=== PATIENT | male | born 1990 | race American Indian/Alaskan Native ===

== ENCOUNTER 2016-12-07 09:02 | Emergency (ER) | payer SELFPAY ==
[2016-12-07 09:28] LABS: Urine Drugs of Abuse Note Disclamer
[2016-12-07 09:30] LABS: Eosinophils % (Auto) 1.3 % (0.0-4.3); Hematocrit 46.5 % (35.5-45.6); Hemoglobin 15.3 gm/dl (11.8-15.2); Mean Corpuscular HGB Conc 33 % (32-34); Mean Corpuscular Hemoglobin 30 pg (28-32); Mean Corpuscular Volume 90 fl (84-94); Platelet Count 242 K/mm3 (140-440); Red Blood Count 5.19 M/mm3 (3.65-5.03); Red Cell Distribution Width 13.8 % (13.2-15.2); White Blood Count 4.8 K/mm3 (4.5-11.0)
[2016-12-07 09:35] LABS: Bilirubin,Urine NEG (Negative); Blood,Urine SM (Negative); Ketones,Urine NEG (Negative); Leukocyte Esterase,Urine SM (Negative); Nitrite,Urine NEG (Negative); Protein,Urine <15 mg/dL mg/dL (Negative); Urobilinogen,Urine < 2.0 mg/dL (<2.0)
[2016-12-07 09:44] LABS: Anion Gap 19 mmol/L; BUN/Creatinine Ratio 7.27; Blood Urea Nitrogen 8 mg/dL (9-20); Carbon Dioxide 25 mmol/L (22-30); Chloride 101.4 mmol/L (98-107); Glucose 91 mg/dL (75-100); Potassium 3.7 mmol/L (3.6-5.0); Sodium 142 mmol/L (137-145)
--- NOTE | 2016-12-07 13:18 | Emergency Department Report ---
ED Psych HPI - General Chief Complaint: Psych Stated Complaint: THREATENED SUICIDE SHOTGUN TO HEAD Time Seen by Provider: 12/07/16 09:33 Source: patient, EMS Mode of arrival: Ambulatory - History of Present Illness Initial Comments: PAtient reports that he was sitting on the porch holding a shotgun that he found. Reports that the shotgun contained no bullets. Patient reports that his mother saw him with the gun and panicked and called the police with concern for SI. Patient denies SI/HI. Patient denies holding the gun barrel to his head and says that he is not able to position a shot gun to his head. Complaint: other (Patient denies SI/HI. Reports that there was a miscommunication with his mother) -: hour(s) Quality: other (patient denies SI) Improves With: none Worsens With: none Context: other (reports he was reviewing the shotgun that he found) Associated Symptoms: denies: confusion, headache, shortness of breath, nausea, vomiting, syncope, insomnia - Related Data Home Medications Medication Instructions Recorded Confirmed Last Taken No Known Home Medications [No 12/07/16 12/07/16 Unknown Reported Home Medications] Allergies Allergy/AdvReac Type Severity Reaction Status Date / Time No Known Allergies Allergy Unverified 12/07/16 09:07 ED Review of Systems ROS: Stated complaint: THREATENED SUICIDE SHOTGUN TO HEAD Other details as noted in HPI Other: GENERAL: No weight change, fatigue, weakness, fever, chills, or night sweats SKIN: No changes in skin or hair, no itching, no rashes, no jaundice HEAD: No trauma, headache, or visual changes EYES: No blurriness, tearing, itching, acute visual loss, conjunctival discoloration, or scleral icterus EARS: No hearing loss, tinnitus, vertigo, or earache NOSE: No rhinorrhea, stuffiness, sneezing, itching, or epistaxis MOUTH: No bleeding gums, hoarseness, sore throat, or swelling CARDIAC: No new murmur, chest pain, palpitations, dyspnea on exertion, orthopnea , PND, or edema RESPIRATORY: No shortness of breath, wheeze, cough, sputum production, hemoptysis, pneumonia, asthma, bronchitis, or emphysema GI: No change in appetite, nausea, vomiting, dysphagia, change in bowel frequency, diarrhea, constipation, bleeding, hematemesis, melena, hematochezia, or abdominal pain URINARY: No frequency, urgency, polyuria, dysuria, hematuria, or incontinence MUSCULOSKELETAL: No muscle weakness, joint stiffness, decrease in range of motion, redness, swelling, tenderness NEUROLOGIC: No loss of sensation, numbness, tingling, tremors, weakness, paralysis, seizures HEMATOLOGIC: No anemia, easy bruising, bleeding, petechiae, or purpura ENDOCRINE: No hot or cold intolerance, sweating, polyuria, polydipsia or, polyphagia no thyroid problems PSYCHIATRIC: No change in mood, no anxiety, no depression, denies SI/HI ED Past Medical Hx - Past Medical History Previous Medical History?: No - Surgical History Past Surgical History?: No - Social History Smoking Status: Current Every Day Smoker Substance Use Type: Alcohol - Medications Home Medications: Home Medications Medication Instructions Recorded Confirmed Last Taken Type No Known Home Medications [No 12/07/16 12/07/16 Unknown History Reported Home Medications] ED Physical Exam - General Limitations: Other - Other Other exam information: GENERAL: Patient in no acute distress HEAD: Normocephalic, atraumatic EYES: PERRLA, EOM intact, no scleral icterus, no papilledema, no conjunctival hemorrhage, visual lockett and acuity wnl, NOSE: No tenderness, discharge, sinus tenderness MOUTH: No erythema, bleeding, exudate HEART: Regular rate and rhythm, no murmur, S1-S2 are auscultated, pulses are symmetric LUNGS: No wheezing, rales, rhonchi, bilateral breath sounds ABDOMEN: Normal bowel sounds, no tenderness, no rebound, no guarding, no masses , no CVA tenderness MUSCULOSKELETAL: Normal joint range of motion, no redness, no swelling, no tenderness NEUROLOGIC: GCS 15, Alert and Oriented x3, Cranial nerves intact, normal sensation, normal strength, normal gait, no cerebellar deficit PSYCHIATRIC: No homicidal or suicidal ideation, no anxiety, no depression, no hallucinations SKIN: Skin is warm and dry, no wounds, no rashes ED Course Vital Signs 12/07/16 12/07/16 09:22 09:27 Temperature 98.4 F Pulse Rate 67 Respiratory 18 18 Rate Blood Pressure 128/68 [Right] O2 Sat by Pulse 97 Oximetry ED Medical Decision Making - Lab Data Result diagrams: 12/07/16 09:19 12/07/16 09:19 - Medical Decision Making Mental health [employer] math teacher evaluated the patient in the ER and subsequently discussed the case. Mental health middle school math teacher recommended in person that the patient expressed no SI/HI and that he was safe for discharge from the ER. I also concurred with that plan as patient has continuously denied any SI/HI and reports that there were no bullets in the gun. However, upon discharge the ER nurse reports that placed a note recommending 1013 and inpatient stabilization. A call to determined that the original note that is documented was written before evaluating the patient. This discrepancy was shared with the charge nurse and asked to be reviewed for quality assurance project manager. reports that they will have another counselor come to the ER to evaluate the patient and document a new note in the chart with disposition recommendations. [facility] health middle school math teacher recommends discharge as well and will place an official note in the patient's chart. Critical care attestation.: If time is entered above; I have spent that time in minutes in the direct care of this critically ill patient, excluding procedure time. ED Disposition Clinical Impression: Guns in home not stored in locked cabinet Disposition: DC-01 TO HOME OR SELFCARE Is pt being admited?: No Condition: Stable Instructions: Suicide Prevention for Adults (ED) Referrals: PRIMARY CAREMD [Primary Care Provider] - 3-5 Days Time of Disposition: 13:16
--- NOTE | 2016-12-07 17:12 | Consultation ---
History of Present Illness - Reason for Consult Consult date: 12/07/16 Reason for consult: Mental Health Evaluation Requesting physician: BONIFACIO CORDON - Chief Complaint Chief complaint: 'I was just playing" - History of Present Psychiatric Illness Patient reports that he was sitting on the porch holding a shotgun that he found. Reports that the shotgun contained no bullets. Today patient is calm and cooperative during assessment. Patient stated that he was playing around with a shotgun, but had no intention of killing himself. He stated that the shotgun wasn't loaded with shells. He stated that it may have looked "bad," but his attention was not to harm himself. He denies suicidal attempts in the past and per his mother she isn't aware of her son ever trying to kill himself. She stated that she was scared and the police was called. She did state the patient has been using recreational drugs and drinking alcohol (etoh) frequently. Patient stated that he drink alcohol (etoh), used cocaine, and marijuana late last night. He stated that he want help for his substance abuse. He stated, "I have 4 kids to live for." He denies SI/HI's, AVH's, and depression symptoms. Patient denies paranoia. The shotgun was confiscated by [employer]. Medications and Allergies Allergies Allergy/AdvReac Type Severity Reaction Status Date / Time No Known Allergies Allergy Unverified 12/07/16 09:07 Home Medications Medication Instructions Recorded Confirmed Last Taken Type No Known Home Medications [No 12/07/16 12/07/16 Unknown History Reported Home Medications] Past psychiatric history - Past Medical History Past Medical History: No medical history Past Surgical History: No surgical history - past Psychiatric treatment and history psychiatric treatment history: Denies any psy hx. Denies fam psy hx. - Social History Social history: lives with family (10th grade education) Mental Status Exam - Vital signs Last Vital Signs Temp 98.4 F 12/07/16 09:22 Pulse 67 12/07/16 09:22 Resp 18 12/07/16 09:27 BP 128/68 12/07/16 09:22 Pulse Ox 97 12/07/16 09:22 - Exam Narrative exam: ROS: (-) depression MSE: Appearance: calm, cooperative Behavior: good eye contact Speech: regular rate and tone Mood: "I am okay" Affect: flat Thought Process: linear Thought Content: denies of SI/HI's and AVH's Motor Activity: ambulatory Cognition: a/O x3 Insight: fair Judgment: fair Results Result Diagrams: 12/07/16 09:19 12/07/16 09:19 Abnormal lab results 12/07/16 12/07/16 12/07/16 Range/Units 09:19 09:19 09:19 RBC 5.19 H (3.65-5.03) M/mm3 Hgb 15.3 H (11.8-15.2) gm/dl Hct 46.5 H (35.5-45.6) % Lymph % (Auto) 48.4 H (13.4-35.0) % BUN 8 L (9-20) mg/dL Plasma/Serum Alcohol 0.12 H (0-0.07) gm% All other labs normal. 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 Today patient is calm and cooperative during assessment. Patient stated that he was playing around with a shotgun, but had no intention of killing himself. He stated that the shotgun wasn't loaded with shells. He stated that it may have looked "bad," but his attention was not to harm himself. He denies suicidal attempts in the past and per his mother she isn't aware of her son ever trying to kill himself. Positive for cocaine, marijuana, and alcohol serum 0.12. Patient is no threat to self. Recommendation/Plan: Patient given outpatient rehab services for his local area. Discussed the importance of abstaining from alcohol (etoh) and recreational drugs.
[2016-12-07 17:36] VITALS: BP 124/61
== END 2016-12-07 17:36 | disposition home or self-care (01) ==
LOC: ED 09:02
DX: Z00.8 Encounter for other general examination (principal); F17.200 Nicotine dependence, unspecified, uncomplicated
CPT/HCPCS: 36415; 80048; 80307; 81001; 85025; 99284; G0480; 80320